=== PATIENT | male | born 1955 | race Caucasian/White ===

== ENCOUNTER 2017-02-26 23:23 | Observation (INO) | payer OTHER ==
--- NOTE | 2017-02-26 23:51 | ED PDOC ---
HPI: Chest Pain Time Seen by Provider: 02/26/17 23:31 Chief Complaint (Nursing): Chest Pain Chief Complaint (Provider): Chest Pain History Per: Patient History/Exam Limitations: no limitations Onset/Duration Of Symptoms: Days (1), Intermittent Episodes Current Symptoms Are (Timing): Gone Now Severity: Moderate Quality: Sharp Associated Symptoms: denies: Nausea, Dyspnea, Diaphoresis Modifying Factors: None Exacerbating Factors: None Additional History Per: Patient Additional Complaint(s): 61 y/o undomiciled male with PMHx uncontrolled HTN, and DM, here this evening complaining of left sided chest pain x1 day that is intermittent and not present at this time. He denies any shortness of breath, nausea, vomiting, or diaphoresis. Patient admits to daily ETOH. He is taking some DM medication irregularly. Translation provided by Dr. Aidan Bajwa. Past Medical History Vital Signs: Last Vital Signs Temp 98.1 F 02/26/17 23:26 Pulse 70 02/27/17 05:20 Resp 14 02/27/17 05:20 BP 143/85 02/27/17 05:20 Pulse Ox 98 02/27/17 05:20 - Medical History PMH: CAD, Diabetes, HTN Denies: Chronic Kidney Disease - Surgical History Surgical History: No Surg Hx - Family History Family History: States: Unknown Family Hx - Living Arrangements Living Arrangements: Other (undomiciled) - Social History Current smoker - smoking cessation education provided: No Alcohol: Other (daily) Drugs: Denies - Home Medications Home Medications: Ambulatory Orders Medication Instructions Recorded No Known Home Med 02/27/17 - Allergies Allergies/Adverse Reactions: Allergies Allergy/AdvReac Type Severity Reaction Status Date / Time No Known Allergies Allergy Unverified 01/24/15 23:44 Review of Systems ROS Statement: Except As Marked, All Systems Reviewed And Found Negative Cardiovascular: Positive for: Chest Pain Physical Exam - Reviewed Nursing Documentation Reviewed: Yes Vital Signs Reviewed: Yes - Physical Exam Appears: Positive for: Well, Non-toxic, No Acute Distress Head Exam: Positive for: ATRAUMATIC, NORMAL INSPECTION, NORMOCEPHALIC Skin: Positive for: Normal Color, Warm, DRY Eye Exam: Positive for: EOMI, Normal appearance, PERRL ENT: Positive for: Normal ENT Inspection Neck: Positive for: Normal, Painless ROM Cardiovascular/Chest: Positive for: Regular Rate, Rhythm Respiratory: Positive for: CNT, Normal Breath Sounds Gastrointestinal/Abdominal: Positive for: Normal Exam, Bowel Sounds, Soft Back: Positive for: Normal Inspection Extremity: Positive for: Normal ROM Neurologic/Psych: Positive for: Alert, Oriented - Laboratory Results Result Diagrams: 02/27/17 00:38 02/27/17 00:38 - ECG ECG: Positive for: Interpreted By Me ECG Rhythm: Positive for: Sinus Rhythm, Nonspecific Changes Interpretation Of Abn EKG: NSR rate 69, nonspecific ST changes, 23/29 O2 Sat by Pulse Oximetry: 100 (RA) Pulse Ox Interpretation: Normal Medical Decision Making Medical Decision Making: Time: 11:53pm Impression: 61 y/o [place]ian Male with chest pain in the setting of uncontrolled HTN, and DM. Plan: - Labs and UA - EKG - CXR - 324 mg ASA 01:20: Spoke with Dr. Chance who agreed to accept admission for the patient. CXR pending at this time. Scribe Attestation: Documented by Luz Smallwood acting as a scribe for Kory Narayanan MD. Scribe Attestation: All medical record entries made by the Scribe were at my direction and personally dictated by me. I have reviewed the chart and agree that the record accurately reflects my personal performance of the history, physical exam, medical decision making, and the department course for this patient. I have also personally directed, reviewed, and agree with the discharge instructions and disposition. Disposition - Clinical Impression Clinical Impression: Chest pain - Patient ED Disposition Is Patient to be Admitted: Yes Doctor Will See Patient In The: Hospital Counseled Patient/Family Regarding: Studies Performed, Diagnosis - Disposition Disposition Time: 01:20 Condition: FAIR - Pt Status Changed To: Hospital Disposition Of: Observation
[2017-02-27] MEDS ORDERED: Metoprolol 1 mg/ml Inj IVP ONE (00:10)
[2017-02-27] MEDS ORDERED: Nitroglycerin 2% 15 INCH/30 GM TUBE TOP STA (00:13)
[2017-02-27 00:42] LABS: BASO # 0.1 K/uL (0.0-0.2); BASO % 1.2 % (0.0-2.0); EOS # 0.4 K/uL (0.0-0.7); EOS % 6.7 % (0.0-4.0); HEMATOCRIT 39.9 % (35.0-51.0); LYMPH # 1.7 K/uL (1.0-4.3); LYMPH % 31.1 % (20.0-40.0); MEAN CELL VOLUME 88.3 fl (80.0-94.0); MEAN CORPUSCULAR HEMOGLOBIN 28.7 pg (27.0-31.0); MEAN CORPUSCULAR HGB CONC 32.4 g/dL (33.0-37.0); MEAN PLATELET VOLUME 8.2 fl (7.2-11.7); MONO # 0.5 K/uL (0.0-0.8); MONO % 8.9 % (0.0-10.0); NEUT # 2.9 K/uL (1.8-7.0); NEUT % 52.1 % (50.0-75.0); NRBC % 0.1 % (0.0-0.0); RED CELL DISTRIBUTION WIDTH 14.2 % (11.5-14.5); WHITE BLOOD COUNT 5.5 K/uL (4.8-10.8)
[2017-02-27 00:53] LABS: ALB/GLOB RATIO 1.3 (1.0-2.1); ALCOHOL SERUM < 10 mg/dl (0-10); ALKALINE PHOSPHATASE 56 U/L (38-126); ALT/SGPT 23 U/L (21-72); AST/SGOT 20 U/L (17-59); BILIRUBIN,TOTAL 0.3 mg/dl (0.2-1.3); BLOOD UREA NITROGEN 16 mg/dl (9-20); CARBON DIOXIDE 26 mmol/L (22-30); CHLORIDE 107 mmol/L (98-107); GFR AFRICAN-AMERICAN > 60; GLUCOSE,RANDOM 102 mg/dL (75-110); POTASSIUM 4.4 MMOL/L (3.6-5.0); SODIUM 141 mmol/l (132-148); TOTAL PROTEIN 6.9 G/DL (6.3-8.2)
[2017-02-27 01:03] LABS: PARTIAL THROMBOPLASTIN TIME 26.8 SECONDS (23.3-32.5)
[2017-02-27] MEDS ORDERED: Labetalol 5mg/ml (4ml) IVP STA (01:51)
--- NOTE | 2017-02-27 01:52 | CP.PCM.HP ---
History of Present Illness - History of Present Illness History of Present Illness: CC: CP HPI: 61 y/o undomiciled male with MHx significant for poorly controlled HTN and DM2 as well as EtOHism who came to ER this evening with c/o 1 day of intermittent L sided CP. He denied SOB, SHORT, n/v, palpitations, diaphoresis. Never had these symptoms before. No trauma or strain noted. ROS: 14 systems reviewed, negative other than HPI MHx: HTN, DM2 SHx: None Allergies: NKDA Medications: As per med list, unclear how compliant Family Hx: Unable to provide Social Hx: Undomiciled, does use EtOH, no significant tobacco use Surrogate: None Present on Admission - Present on Admission Any Indicators Present on Admission: No Past Patient History - Past Social History Alcohol: Other (daily) Drugs: Denies - CARDIAC Hx Hypertension: Yes - PULMONARY Hx Respiratory Disorders: No - NEUROLOGICAL Hx Neurological Disorder: No - HEENT Hx HEENT Problems: No - RENAL Hx Chronic Kidney Disease: No - ENDOCRINE/METABOLIC Hx Diabetes Mellitus Type 2: Yes - HEMATOLOGICAL/ONCOLOGICAL Hx Blood Disorders: No - INTEGUMENTARY Hx Dermatological Problems: No - MUSCULOSKELETAL/RHEUMATOLOGICAL Hx Musculoskeletal Disorders: No - GASTROINTESTINAL Hx Gastrointestinal Disorders: No - GENITOURINARY/GYNECOLOGICAL Hx Genitourinary Disorders: No - PSYCHIATRIC Hx Psychophysiologic Disorder: No Hx Substance Use: No - SURGICAL HISTORY Hx Surgeries: No - ANESTHESIA Hx Anesthesia: No Meds Allergies/Adverse Reactions: Allergies Allergy/AdvReac Type Severity Reaction Status Date / Time No Known Allergies Allergy Unverified 01/24/15 23:44 Results - Vital Signs Recent Vital Signs: Last Vital Signs Temp 98.1 F 02/26/17 23:26 Pulse 64 02/27/17 01:35 Resp 16 02/27/17 01:35 BP 216/118 H 02/27/17 01:35 Pulse Ox 100 02/27/17 01:35 - Labs Result Diagrams: 02/27/17 00:38 02/27/17 00:38 Assessment & Plan (1) Chest pain Assessment and Plan: 61 y/o male with multiple medical conditions and likely poor medical compliance who comes in with CP. 1) CP/elevated BP/HLD -Tele -serial trops, AM EKG -Lipids in AM -Echo in AM -Cont ASA, SLNG -Cont Labetolol for BP mgmt 2) DM2 -- SSI, accuchecks 3) DVT PPx -- SCDs Status: Acute (2) ETOH abuse Status: Acute (3) DVT prophylaxis Status: Acute (4) Uncontrolled hypertension Status: Acute
[2017-02-27 06:33] LABS: BASO # 0.1 K/uL (0.0-0.2); BASO % 1.4 % (0.0-2.0); EOS # 0.4 K/uL (0.0-0.7); EOS % 7.1 % (0.0-4.0); HEMATOCRIT 38.1 % (35.0-51.0); LYMPH # 1.6 K/uL (1.0-4.3); LYMPH % 27.9 % (20.0-40.0); MEAN CELL VOLUME 87.8 fl (80.0-94.0); MEAN CORPUSCULAR HEMOGLOBIN 28.5 pg (27.0-31.0); MEAN CORPUSCULAR HGB CONC 32.4 g/dL (33.0-37.0); MEAN PLATELET VOLUME 8.2 fl (7.2-11.7); MONO # 0.5 K/uL (0.0-0.8); MONO % 8.3 % (0.0-10.0); NEUT # 3.1 K/uL (1.8-7.0); NEUT % 55.3 % (50.0-75.0); RED CELL DISTRIBUTION WIDTH 14.1 % (11.5-14.5); WHITE BLOOD COUNT 5.7 K/uL (4.8-10.8)
[2017-02-27 06:43] LABS: BLOOD UREA NITROGEN 15 mg/dl (9-20); CALCIUM 8.7 mg/dL (8.4-10.2); CARBON DIOXIDE 24 mmol/L (22-30); CHLORIDE 110 mmol/L (98-107); GFR AFRICAN-AMERICAN > 60; GLUCOSE,RANDOM 92 mg/dL (75-110); POTASSIUM 4.1 MMOL/L (3.6-5.0); SODIUM 141 mmol/l (132-148)
[2017-02-27 06:47] LABS: CHOLESTEROL 192 mg/dL (0-199)
--- NOTE | 2017-02-27 08:49 | RAD ---
HISTORY: chest pain COMPARISON: No prior. FINDINGS: LUNGS: Mild hazy opacity in the lung bases which could represent atelectasis. Minimally increased pulmonary vascular congestion. PLEURA: No significant pleural effusion identified, no pneumothorax apparent. CARDIOVASCULAR: Enlarged cardiomediastinal silhouette. Calcified aortic arch. OSSEOUS STRUCTURES: The osseous structures demonstrate degenerative changes. VISUALIZED UPPER ABDOMEN: Upper abdomen is suboptimally evaluated. OTHER FINDINGS: None. IMPRESSION: Mild hazy opacity in the lung bases which could represent atelectasis. Other findings as above.
--- NOTE | 2017-02-27 10:56 | CARD ---
APPROVED REPORT EKG Measurement Heart [id number] <Conclusion> Normal sinus rhythm Possible Left atrial enlargement Septal infarct, age undetermined Abnormal ECG
[2017-02-27] MEDS ORDERED: Pneumococcal 23-Valent Vaccine IM ONE (17:16)
[2017-02-27] MEDS: Insulin Lispro (humaLOG) 100 Units/ml Inj SC SCH ×2 (17:53→21:42)
[2017-02-28 08:18] VITALS: BP 152/93; RESP 18; TEMP 98.4; O2SAT 100
[2017-02-28] MEDS: Insulin Lispro (humaLOG) 100 Units/ml Inj SC SCH (09:06)
--- NOTE | 2017-02-28 09:48 | CP.PCM.DIS ---
Provider - Provider Date of Admission: 02/27/17 01:07 Attending physician: Shiraz Chance MD Time Spent in preparation of Discharge (in minutes): 30 Diagnosis - Discharge Diagnosis (1) Chest pain Status: Acute (2) HTN (hypertension) Status: Chronic (3) ETOH abuse Status: Chronic Hospital Course - Lab Results Lab Results: Most Recent Lab Values WBC 5.7 K/uL (4.8-10.8) 02/27/17 06:00 RBC 4.35 Mil/uL (4.40-5.90) L 02/27/17 06:00 Hgb 12.4 g/dL (12.0-18.0) 02/27/17 06:00 Hct 38.1 % (35.0-51.0) 02/27/17 06:00 MCV 87.8 fl (80.0-94.0) 02/27/17 06:00 MCH 28.5 pg (27.0-31.0) 02/27/17 06:00 MCHC 32.4 g/dL (33.0-37.0) L 02/27/17 06:00 RDW 14.1 % (11.5-14.5) 02/27/17 06:00 Plt Count 207 K/uL (130-400) 02/27/17 06:00 MPV 8.2 fl (7.2-11.7) 02/27/17 06:00 Neut % (Auto) 55.3 % (50.0-75.0) 02/27/17 06:00 Lymph % (Auto) 27.9 % (20.0-40.0) 02/27/17 06:00 Wise % (Auto) 8.3 % (0.0-10.0) 02/27/17 06:00 Eos % (Auto) 7.1 % (0.0-4.0) H 02/27/17 06:00 Baso % (Auto) 1.4 % (0.0-2.0) 02/27/17 06:00 Neut # 3.1 K/uL (1.8-7.0) 02/27/17 06:00 Lymph # 1.6 K/uL (1.0-4.3) 02/27/17 06:00 Wise # 0.5 K/uL (0.0-0.8) 02/27/17 06:00 Eos # 0.4 K/uL (0.0-0.7) 02/27/17 06:00 Baso # 0.1 K/uL (0.0-0.2) 02/27/17 06:00 PT 10.3 SECONDS (9.6-11.2) 02/27/17 00:38 INR 0.99 (0.92-1.08) 02/27/17 00:38 APTT 26.8 SECONDS (23.3-32.5) 02/27/17 00:38 Sodium 141 mmol/l (132-148) 02/27/17 06:00 Potassium 4.1 MMOL/L (3.6-5.0) 02/27/17 06:00 Chloride 110 mmol/L (98-107) H 02/27/17 06:00 Carbon Dioxide 24 mmol/L (22-30) 02/27/17 06:00 Anion Gap 11 (10-20) 02/27/17 06:00 BUN 15 mg/dl (9-20) 02/27/17 06:00 Creatinine 1.0 mg/dL (0.8-1.5) 02/27/17 06:00 Est GFR ( Amer) > 60 02/27/17 06:00 Est GFR (Non-Af Amer) > 60 02/27/17 06:00 POC Glucose (mg/dL) 83 mg/dL (65-110) 02/28/17 05:50 Random Glucose 92 mg/dL (75-110) 02/27/17 06:00 Hemoglobin A1c 5.8 % (4.2-6.5) 02/27/17 06:48 Calcium 8.7 mg/dL (8.4-10.2) 02/27/17 06:00 Total Bilirubin 0.3 mg/dl (0.2-1.3) 02/27/17 00:38 AST 20 U/L (17-59) 02/27/17 00:38 ALT 23 U/L (21-72) 02/27/17 00:38 Alkaline Phosphatase 56 U/L (38-126) 02/27/17 00:38 Troponin I < 0.0120 ng/mL (0.00-0.120) 02/27/17 18:15 Total Protein 6.9 G/DL (6.3-8.2) 02/27/17 00:38 Albumin 3.9 g/dL (3.5-5.0) 02/27/17 00:38 Globulin 3.0 gm/dL (2.2-3.9) 02/27/17 00:38 Albumin/Globulin Ratio 1.3 (1.0-2.1) 02/27/17 00:38 Triglycerides 72 mg/DL (0-149) 02/27/17 06:00 Cholesterol 192 mg/dL (0-199) 02/27/17 06:00 LDL Cholesterol Direct 105 mg/dL (0-129) 02/27/17 06:00 HDL Cholesterol 65 MG/DL (30-70) 02/27/17 06:00 Urine Opiates Screen Negative (NEGATIVE) 02/27/17 02:10 Urine Methadone Screen Negative (NEGATIVE) 02/27/17 02:10 Ur Barbiturates Screen Negative (NEGATIVE) 02/27/17 02:10 Ur Phencyclidine Scrn Negative (NEGATIVE) 02/27/17 02:10 Ur Amphetamines Screen Negative (NEGATIVE) 02/27/17 02:10 U Benzodiazepines Scrn Negative (NEGATIVE) 02/27/17 02:10 U Oth Cocaine Metabols Negative (NEGATIVE) 02/27/17 02:10 U Cannabinoids Screen Negative (NEGATIVE) 02/27/17 02:10 Alcohol, Quantitative < 10 mg/dl (0-10) 02/27/17 00:38 - Hospital Course Hospital Course: 61 y/o gent, homeless, with hx of HTN , noncompliant with medication, and ff up. and also ? hx of Alcohol Abuse , came in because of Chest pain. Pt was observed in Tele. EKG no change from previous. Troponin x 3 nefgativ. he was started on ASA, YAN, statin. No abn rhythm on Tele monitoing. Pt has history of Alcohol abuse- he had no signs of withdrawal , his gait was stable. Good PO intake. (1) Chest pain prob musculoskeletal pin, ACS ruled out Status: Acute ASA, statin, YAN started Trop x 3 negative d/c home further cardiac work up as outpt- ff up at the [facility] (2) HTN (hypertension) Status: Chronic pt noncompliant with meds started on Lisinopril (3) ETOH abuse Status: Chronic started on Librium, Thiamine and FA pt had no signs of withdrawal, ambulating in the unit- gait stable Discharge Exam - Head Exam Head Exam: ATRAUMATIC, NORMAL INSPECTION, NORMOCEPHALIC - Eye Exam Eye Exam: EOMI, Normal appearance Pupil Exam: NORMAL ACCOMODATION - ENT Exam ENT Exam: Mucous Membranes Moist, Normal External Ear Exam - Neck Exam Neck exam: Full Rom - Respiratory Exam Respiratory Exam: NORMAL BREATHING PATTERN. absent: Rales, Wheezes, Respiratory Distress - Cardiovascular Exam Cardiovascular Exam: REGULAR RHYTHM, +S1, +S2 - GI/Abdominal Exam GI & Abdominal Exam: Normal Bowel Sounds, Soft. absent: Tenderness - Extremities Exam Extremities exam: full ROM, normal capillary refill, pedal pulses present Additional comments: no calf tenderness - Back Exam Back exam: FULL ROM. absent: CVA tenderness (L), CVA tenderness (R) - Neurological Exam Neurological exam: Alert, CN II-XII Intact, Oriented x3, Reflexes Normal - Psychiatric Exam Psychiatric exam: Normal Affect, Normal Mood - Skin Skin Exam: Dry, Normal Color, Warm Discharge Plan - Discharge Medications Prescriptions: chlordiazePOXIDE [Librium] 10 mg PO Q8 #10 cap Lisinopril [Zestril] 10 mg PO DAILY #30 tab Thiamine [Vitamin B1 Tab] 100 mg PO DAILY #30 tab - Follow Up Plan Condition: GOOD Disposition: HOME/ ROUTINE Instructions: Abuse of Alcohol (DC), Chronic Hypertension (DC), How to Quit Using Smokeless Tobacco (DC) Additional Instructions: appt [facility] further cardiac work up as outpt Referrals: [facility] [Outside]
[2017-02-28 10:46] VITALS: PULSE 83
== END 2017-02-28 12:32 | disposition home or self-care (01) ==
LOC: H.ER 23:23 → H.ERHOLD 02-27 01:07 → H.TEL 02-27 15:48
PROVIDERS: ADMIT Internal Medicine; ATTEND Internal Medicine
DX: R07.9 Chest pain, unspecified (principal); E11.9 Type 2 diabetes mellitus without complications; I10 Essential (primary) hypertension; I25.10 Atherosclerotic heart disease of native coronary artery without angina pectoris; Z91.14 Patient's other noncompliance with medication regimen; Z91.19 Patient's noncompliance with other medical treatment and regimen; F10.10 Alcohol abuse, uncomplicated; Y90.0 Blood alcohol level of less than 20 mg/100 ml; Z23 Encounter for immunization; Z59.0 Homelessness

== ENCOUNTER 2017-03-13 10:01 | Observation (INO) | payer OTHER ==
--- NOTE | 2017-03-13 10:38 | ED PDOC ---
HPI: Psych/Substance Abuse Time Seen by Provider: 03/13/17 10:09 Chief Complaint (Nursing): Alcohol Ingestion Chief Complaint (Provider): ETOH? History Per: Patient Additional Complaint(s): Pt is a 61 yo male, denies any PMH, presents to ED via ambulance, for evaluation of possible ETOH intoxication, [place] Pt speaking in clear and full sentences at this time, complaints of headache and possible HTN? Patients insurance case manager from [facility], Louise Galicia, called after finding out patient was brought to ED. According to insurance case manager, patient is a non-domiciled male with a history of hypertension, hypercholesterolemia and diabetes. Speeder Worker has been attempting to get the patient back home to his family in [place] and is trying to get the proper paper work from the consulate. She reports patient has become increasingly more agitated and disoriented than when she first met him. PMD: none provide d Past Medical History Vital Signs: Last Vital Signs Temp 98.4 F 03/13/17 10:29 Pulse 88 03/13/17 10:29 Resp 24 03/13/17 10:29 BP 186/112 H 03/13/17 10:29 Pulse Ox 100 03/13/17 10:29 - Medical History PMH: CAD, Diabetes, HTN Denies: Chronic Kidney Disease - Family History Family History: States: Unknown Family Hx - Home Medications Home Medications: Ambulatory Orders Medication Instructions Recorded Aspirin 81 mg PO DAILY #1 tab 02/27/17 Lisinopril [Zestril] 10 mg PO DAILY #30 tab 02/27/17 Thiamine [Vitamin B1 Tab] 100 mg PO DAILY #30 tab 02/27/17 chlordiazePOXIDE [Librium] 10 mg PO Q8 #10 cap 02/27/17 - Allergies Allergies/Adverse Reactions: Allergies Allergy/AdvReac Type Severity Reaction Status Date / Time No Known Allergies Allergy Verified 03/13/17 10:06 Review of Systems ROS Statement: Except As Marked, All Systems Reviewed And Found Negative Neurological: Positive for: Headache Physical Exam - Reviewed Nursing Documentation Reviewed: Yes Vital Signs Reviewed: Yes - Physical Exam Appears: Positive for: Well, Non-toxic, No Acute Distress Head Exam: Positive for: ATRAUMATIC, NORMAL INSPECTION, NORMOCEPHALIC Skin: Positive for: Normal Color, Warm, DRY Eye Exam: Positive for: EOMI, Normal appearance, PERRL ENT: Positive for: Normal ENT Inspection Neck: Positive for: Normal, Painless ROM Cardiovascular/Chest: Positive for: Regular Rate, Rhythm Respiratory: Positive for: CNT, Normal Breath Sounds Gastrointestinal/Abdominal: Positive for: Normal Exam, Bowel Sounds, Soft Back: Positive for: Normal Inspection Extremity: Positive for: Normal ROM Neurologic/Psych: Positive for: Alert, Oriented - Laboratory Results Result Diagrams: 03/13/17 11:10 03/13/17 11:30 - ECG O2 Sat by Pulse Oximetry: 100 (RA) Pulse Ox Interpretation: Normal Medical Decision Making Medical Decision Making: Initial Impression: Possible ETOH and increased agitation Initial Plan: * EKG * alcohol serum * Troponin I * crisis evaluation * reevaluation * All labs resulted and re viewed. CBC, COMP, UA all WNL * UDS negative * Alcohol Negative * head CT Negative * Pt medically cleared and underwent crisis eval. Pt refusing to sign in while in ED, [facility] screened. Pt placed in ED Obs for remainder of stay Scribe Attestation: Documented by Maria Lopez, acting as a scribe for Keira White PA-C Provider Scribe Attestation: All medical record entries made by the Scribe were at my direction and personally dictated by me. I have reviewed the chart and agree that the record accurately reflects my personal performance of the history, physical exam, medical decision making, and the department course for this patient. I have also personally directed, reviewed, and agree with the discharge instructions and disposition. Disposition - Clinical Impression Clinical Impression: Agitation - Patient ED Disposition Is Patient to be Admitted: No - Disposition Disposition: Transfer of Care (Vidhya) Disposition Time: 20:00 Condition: STABLE - POA Present On Arrival: None
[2017-03-13 11:25] LABS: BASO # 0.1 K/uL (0.0-0.2); BASO % 0.9 % (0.0-2.0); EOS # 0.2 K/uL (0.0-0.7); EOS % 3.5 % (0.0-4.0); HEMATOCRIT 39.1 % (35.0-51.0); LYMPH # 1.7 K/uL (1.0-4.3); LYMPH % 27.3 % (20.0-40.0); MEAN CELL VOLUME 86.5 fl (80.0-94.0); MEAN CORPUSCULAR HEMOGLOBIN 28.3 pg (27.0-31.0); MEAN CORPUSCULAR HGB CONC 32.8 g/dL (33.0-37.0); MEAN PLATELET VOLUME 7.9 fl (7.2-11.7); MONO # 0.4 K/uL (0.0-0.8); MONO % 6.5 % (0.0-10.0); NEUT # 3.8 K/uL (1.8-7.0); NEUT % 61.8 % (50.0-75.0); NRBC % 0.1 % (0.0-0.0); RED CELL DISTRIBUTION WIDTH 13.6 % (11.5-14.5); WHITE BLOOD COUNT 6.1 K/uL (4.8-10.8)
[2017-03-13 11:36] LABS: ALB/GLOB RATIO 1.3 (1.0-2.1); ALCOHOL SERUM < 10 mg/dl (0-10); ALKALINE PHOSPHATASE 63 U/L (38-126); ALT/SGPT 28 U/L (21-72); AST/SGOT 19 U/L (17-59); BILIRUBIN,TOTAL 0.3 mg/dl (0.2-1.3); BLOOD UREA NITROGEN 16 mg/dl (9-20); CALCIUM 9.1 mg/dL (8.4-10.2); CARBON DIOXIDE 27 mmol/L (22-30); CHLORIDE 104 mmol/L (98-107); GFR AFRICAN-AMERICAN > 60; GLUCOSE,RANDOM 85 mg/dL (75-110); POTASSIUM 3.8 MMOL/L (3.6-5.0); SODIUM 141 mmol/l (132-148); TOTAL PROTEIN 7.4 G/DL (6.3-8.2)
--- NOTE | 2017-03-13 13:41 | CARD ---
APPROVED REPORT EKG Measurement Heart [id number] <Conclusion> Normal sinus rhythm Normal ECG
--- NOTE | 2017-03-13 13:53 | CT ---
PROCEDURE: CT HEAD WITHOUT CONTRAST. HISTORY: AMS COMPARISON: None available. TECHNIQUE: Axial computed tomography images were obtained through the head/brain without intravenous contrast. Radiation dose: Total exam DLP = 770.29 mGy-cm. This CT exam was performed using one or more of the following dose reduction techniques: Automated exposure control, adjustment of the mA and/or kV according to patient size, and/or use of iterative reconstruction technique. FINDINGS: HEMORRHAGE: No intracranial hemorrhage. BRAIN: No mass effect or edema. Mild atrophy is noted. Moderate white matter changes are also noted suggestive but nonspecific for chronic microvascular ischemic disease. VENTRICLES: Unremarkable. No hydrocephalus. CALVARIUM: Unremarkable. PARANASAL SINUSES: Unremarkable as visualized. No significant inflammatory changes. MASTOID AIR CELLS: Opacification of both mastoids is noted. The possibility of mastoiditis should be considered. OTHER FINDINGS: None. IMPRESSION: No evidence of acute intracranial hemorrhage intracranial collection mass effect or midline shift. Mild atrophy. Moderate white matter changes suggestive but nonspecific for chronic microvascular white matter ischemic disease. Opacification of the mastoids suspicious for mastoiditis.
[2017-03-13 16:49] LABS: RBC URINE 3 /hpf (0-3); URINE BACTERIA RARE (<OCC); URINE BILIRUBIN NEGATIVE (NEGATIVE); URINE BLOOD NEGATIVE (NEGATIVE); URINE COLOR STRAW (YELLOW); URINE GLUCOSE (UA) NEG (Normal); URINE KETONE NEGATIVE (NEGATIVE); URINE LEUKOCYTE ESTERASE NEG Leu/uL (Negative); URINE PROTEIN NEGATIVE (NEGATIVE); URINE UROBILINOGEN 0.2-1.0 mg/dL (0.2-1.0); WBC URINE 1 /hpf (0-5)
[2017-03-13] MEDS ORDERED: diaZEpam 10 mg/2 ml Inj IVP ONE (19:16)
[2017-03-13] MEDS ORDERED: diaZEpam 10 mg/2 ml Inj IM ONE (19:29)
--- NOTE | 2017-03-14 05:33 | ED PDOC ---
- Laboratory Results Result Diagrams: 03/13/17 11:10 03/13/17 11:30 - ECG O2 Sat by Pulse Oximetry: 100 - Radiology X-Ray: Viewed By Me X-Ray Interpretation: No Acute Disease (unchanged from prior) - Progress ED Course And Treament: Case endorsed to remote mortgage underwriter from [employer] pending [facility] eval 21:30 Patient sleeping, no distress 23:30 Patient BP slightly elevated; Vasotec PO dose ordered. Patient without complaints. 1:50 Patient BP still elevated; Clonodine 0.1mg PO ordered. Patient without complaints. 3:00 Patient sleeping. Repeat BP 102/72 5:30 Patient awake, no complaints. xray taken Disposition - Clinical Impression Clinical Impression: Agitation - POA Present On Arrival: None - Disposition Disposition: Transfer of Care Disposition Time: 06:00 Condition: STABLE Patient Signed Over To: Stephon Brito Handoff Comments: pending [facility] eval
--- NOTE | 2017-03-14 06:13 | ED PDOC ---
- Laboratory Results Result Diagrams: 03/13/17 11:10 03/13/17 11:30 - ECG O2 Sat by Pulse Oximetry: 100 Medical Decision Making Medical Decision Makin Patient endorsed to designer/writer from [employer] Kee pending [facility] [place]. Pt. sleeping comfortably. BP is now normal. Scribe Attestation: Documented by Lucero Kern acting as a scribe for Stephon Brito MD. Scribe Attestation: All medical record entries made by the Scribe were at my direction and personally dictated by me. I have reviewed the chart and agree that the record accurately reflects my personal performance of the history, physical exam, medical decision making, and the department course for this patient. I have also personally directed, reviewed, and agree with the discharge instructions and disposition. Disposition - Clinical Impression Clinical Impression: Agitation - POA Present On Arrival: None - Disposition Disposition: Transfer of Care Disposition Time: 07:00 Condition: STABLE Patient Signed Over To: Maria Armstrong Handoff Comments: Pending [facility] evaluation
--- NOTE | 2017-03-14 07:13 | ED PDOC ---
- Laboratory Results Result Diagrams: 03/13/17 11:10 03/13/17 11:30 - ECG O2 Sat by Pulse Oximetry: 100 (RA) Pulse Ox Interpretation: Normal Medical Decision Making Medical Decision Makin:00 Patient was signed out to me by Stephon Brito MD pending [facility] [place] [place] evaluation for involuntary psych admission. Scribe Attestation: Documented by Maria Lopez, acting as a scribe for Maria Armstrong MD. Provider Scribe Attestation: All medical record entries made by the Scribe were at my direction and personally dictated by me. I have reviewed the chart and agree that the record accurately reflects my personal performance of the history, physical exam, medical decision making, and the department course for this patient. I have also personally directed, reviewed, and agree with the discharge instructions and disposition. Disposition - Clinical Impression Clinical Impression: Agitation - Disposition Condition: STABLE
--- NOTE | 2017-03-14 10:50 | RAD ---
PROCEDURE: CHEST RADIOGRAPH, 1 VIEW HISTORY: medical screening COMPARISON: Comparison is made to 02/27/2017 FINDINGS: LUNGS: No evidence of new infiltrate or consolidation in the lungs. PLEURA: No pneumothorax or pleural fluid seen. CARDIOVASCULAR: Normal. OSSEOUS STRUCTURES: No significant abnormalities. VISUALIZED UPPER ABDOMEN: Normal. OTHER FINDINGS: None. IMPRESSION: No active disease.
[2017-03-15 05:15] VITALS: BP 142/80; PULSE 68; RESP 18; TEMP 98; O2SAT 100
== END 2017-03-15 05:05 ==
LOC: H.ER 10:01 → H.EROBSV 10:10
PROVIDERS: ADMIT Emergency Medicine; ATTEND Emergency Medicine
DX: R45.1 Restlessness and agitation (principal); E11.9 Type 2 diabetes mellitus without complications; E78.00 Pure hypercholesterolemia, unspecified; I10 Essential (primary) hypertension; I25.10 Atherosclerotic heart disease of native coronary artery without angina pectoris; Z79.82 Long term (current) use of aspirin; F17.220 Nicotine dependence, chewing tobacco, uncomplicated